=== PATIENT | female | born 1980 | race Caucasian/White ===

== ENCOUNTER 2016-10-03 04:48 | Emergency (ER) | payer SELFPAY ==
[~2016-10-03] VITALS: Ht 160 cm; Wt 88.5 kg
--- NOTE | 2016-10-03 04:48 | NUR ---
Luh smith in ED - 10/03/16 at 0454 by [facility] BIB BY [facility] TO ER BED 6
--- NOTE | 2016-10-03 04:48 | NUR ---
BIB [facility] TO ER BED 6
[2016-10-03 04:51] VITALS: BP 125/73
[2016-10-03] MEDS ORDERED: ARIP5TAB10 PO (05:00)
[2016-10-03] MEDS ORDERED: ACET1TAB97 PO (05:00)
--- NOTE | 2016-10-03 05:00 | NUR ---
PT BIB [facility] FOR PREBOOK C/O LOW BACK PAIN S/P T/C HX OF LOW BACK CHRONIC PAIN,DEPRESSION,ANXIETY, TAKES TYLENOL #4 FOR 10YEARS. 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 PAIN 9/10. PT DENIES N/V/D; SKIN IS INTACT, PINK/WARM/DRY; AAOX4, PERRL, WITH EVEN AND STEADY GAIT; LUNGS CLEAR BL, BREATHING UNLABORED; HR EVEN AND REGULAR, BL PERIPHERAL PULSES PRESENT; BS ACTIVE X4, NO TENDERNESS TO PALPATION. PT DENIES ANY FEVER, CP, SOB, OR COUGH AT THIS TIME; PT STATES 9/10 PAIN AT THIS TIME; VSS; PATIENT POSITIONED FOR COMFORT; HOB ELEVATED; BEDRAILS UP X2; BED DOWN.
[2016-10-03 05:59] VITALS: BP 122/69
--- NOTE | 2016-10-03 05:59 | NUR ---
PATIENT BIB [facility] POLICE DEPT. PATIENT EXAMINED BY DR. SANDOVAL. PATIENT MEDICALLY CLEARED AND RELEASED IN CUSTODY IN STABLE CONDITION. ORIGINAL PRE-BOOK FORM GIVEN TO OFFICER LALITA.
== END 2016-10-03 05:59 ==
LOC: MED 04:48
DX: Z02.89 Encounter for other administrative examinations (principal); M54.5 Low back pain; F32.9 Major depressive disorder, single episode, unspecified; F41.9 Anxiety disorder, unspecified; Z88.8 Allergy status to other drugs, medicaments and biological substances; Z79.899 Other long term (current) drug therapy; V49.9XXA Car occupant (driver) (passenger) injured in unspecified traffic accident, initial encounter; Y93.89 Activity, other specified; Y92.89 Other specified places as the place of occurrence of the external cause; Y99.8 Other external cause status
CPT/HCPCS: 81025; 99283